=== PATIENT | male | born 1950 | race Two or more races ===

== ENCOUNTER 2020-11-05 21:32 | Inpatient (IN) | payer OTHER ==
[~2020-11-05] VITALS: Ht 172.7 cm; Wt 95.5 kg
[2020-11-05] MEDS ORDERED: ACETAMINOPHEN 325 MG TAB PO ONE (21:45)
[2020-11-05 22:31] LABS: Albumin 3.1 g/dL (3.4-5.0); Calcium 8.6 mg/dL (8.5-10.1)
[2020-11-05 22:35] LABS: Basophils # (auto) 0 10 ^3/uL (0-0.2); Basophils % (auto) 0.8 % (0.0-2.0); Eosinophils # (auto) 0 10 ^3/uL (0-0.8); Hematocrit 42.5 % (41.0-53.0); Hemoglobin 14.2 g/dL (13.5-17.5); Lymphocytes # (auto) 0.6 10 ^3/uL (0.4-5.4); Mean Corpuscular Hemoglobin 32.2 pg (28.0-32.0); Mean Corpuscular Hgb Conc. 33.5 g/dL (32.0-36.0); Mean Corpuscular Volume 96.3 fL (80.0-100.0); Monocytes # (auto) 0.2 10 ^3/uL (0-1.3); Monocytes % (auto) 7.7 % (0.0-12.0); Neutrophils # (auto) 1.7 10 ^3/uL (1.6-8.6); Neutrophils % (auto) 69.5 % (37.0-80.0); Nucleated Red Blood Cells % 0.1 %; Red Blood Cells 4.42 10^6/uL (4.5-5.90); Red Cell Distribution Width 13.6 % (11.8-14.3); White Blood Cell 2.5 10^3/uL (4.4-10.8)
[2020-11-05 22:44] LABS: BUN/Creatinine Ratio 14.8; Bilirubin, Total 0.5 mg/dL (0.2-1.0); Potassium 4.6 mmol/L (3.5-5.1); Total Protein 7.8 g/dL (6.4-8.2)
[2020-11-06] MEDS ORDERED: VANCOMYCIN 1,500 MG in D5W 5% 250 ML IV ONE (00:15)
[2020-11-06] MEDS ORDERED: VANCOMYCIN 1GM/250ML 500 ML IV ONE (01:23)
[2020-11-06] MEDS ORDERED: PIPERACILLIN-TAZO 4.5GM 100 ML IV ONE (02:15)
[2020-11-06] MEDS ORDERED: DexAMETHasone INJECTION 6 MG in D5W 5% 50 ML IV ONE (02:15)
[2020-11-06] MEDS ORDERED: ACETAMINOPHEN 500 MG TAB PO PRN (02:45)
[2020-11-06 02:54] VITALS: BP 126/79
[2020-11-06] MEDS ORDERED: NITROGLYCERIN 0.4 MG SL TAB SL PRN (03:00)
[2020-11-06] MEDS ORDERED: MORPHINE SULFATE INJECTION 2 MG/ML SYRG IV PRN (03:00)
[2020-11-06] MEDS ORDERED: ONDANSETRON HCL 4 MG/2 ML VIAL IV PRN (03:00)
[2020-11-06] MEDS ORDERED: SODIUM CHLORIDE 0.9% 1,000 ML IV SCH (03:00)
[2020-11-06] MEDS ORDERED: HYDROcodone-ACET 5/325MG TAB PO PRN (03:00)
[2020-11-06] MEDS ORDERED: DexAMETHasone SOD PHOS 4 MG/1ML SDV INJ ONE (03:13)
[2020-11-06 04:36] LABS: Magnesium 2.1 mg/dL (1.6-2.6)
[2020-11-06] MEDS ORDERED: cefTRIAXone 1GM/50ML D5W 50 ML IV SCH (09:00)
[2020-11-06] MEDS: BUDESONIDE (INHALATION) 180 MCG IH IN SCH ×2 (09:59→22:22)
[2020-11-06] MEDS: ZINC SULFATE 220mg CAP or TAB PO SCH (10:00)
[2020-11-06] MEDS: DexAMETHasone SOD PHOS 10MG/1ML VIAL INJ IV SCH (10:00)
[2020-11-06] MEDS: DOXYCYCLINE 100MG/250ML 250 ML IV SCH ×2 (10:00→22:05)
[2020-11-06] MEDS: CHOLECALCIFEROL (VITD3) 2,000 UNIT CAP/TAB PO SCH (10:00)
[2020-11-06] MEDS: MULTIPLE VITAMIN TAB PO SCH (10:00)
[2020-11-06] MEDS ORDERED: ENOXAPARIN SOD 40 MG/0.4 ML SYRINGE SC SCH (10:00)
[2020-11-06] MEDS: ASCORBIC ACID 1,000 MG TAB PO SCH (10:00)
[2020-11-06] MEDS: FAMOTIDINE (10MG/ML) 2ML VL IV SCH ×2 (10:00→22:05)
[2020-11-06] MEDS ORDERED: DEXTROSE (50%) 50ML SYRG IV PRN (13:30)
[2020-11-06] MEDS ORDERED: REMDESIVIR PER PHARMACY 0 ML IV SCH (13:30)
[2020-11-06] MEDS ORDERED: REMDESIVIR 200 MG in NS 210ml LOADING DOSE ADULT IV ONE (15:00)
[2020-11-06 15:40] LABS: Albumin 3.1 g/dL (3.4-5.0); Calcium 8.7 mg/dL (8.5-10.1); Potassium 4.4 mmol/L (3.5-5.1)
[2020-11-06 15:43] LABS: Lactic Acid w/Reflex 2.8 mmol/L (0.4-2.0)
[2020-11-06 15:49] LABS: BUN/Creatinine Ratio 15.3; Bilirubin, Total 0.4 mg/dL (0.2-1.0); CRP High Sensitivity 3.28 mg/dL (< 0.3); Total Protein 7.6 g/dL (6.4-8.2)
[2020-11-06 15:50] LABS: Thyroid Stimulating Hormone 0.87 uIU/mL (0.358-3.74)
[2020-11-06 15:51] LABS: Ferritin 956.1 ng/mL (10-322); Free T4 (Free Thyroxine) 0.88 ng/dL (0.89-1.76)
[2020-11-06] MEDS: IVERMECTIN 3 MG TAB PO SCH (15:53)
[2020-11-06] MEDS ORDERED: DEXTROSE (50%) 50ML SYRG IV ONE (16:30)
[2020-11-06] MEDS ORDERED: ACCU-CHEK COMFORT CURVE STRIP VI ONE (17:00)
[2020-11-06] MEDS ORDERED: InsuLIN REG 1unit/0.01ml Soln (100units/ml) SC ONE (17:00)
[2020-11-06] MEDS: ACCU-CHEK COMFORT CURVE STRIP VI SCH ×2 (17:00→22:05)
[2020-11-06] MEDS: InsuLIN REG 1unit/0.01ml Soln (100units/ml) SC SCH ×2 (17:35→22:07)
[2020-11-06 18:56] LABS: Alcohol, Urine < 3.0 mg/dL (0-10); Amphetamine Screen, Urine NEGATIVE (NEGATIVE); Barbiturate Scree,Urine NEGATIVE (NEGATIVE); Benzodiazephine Screen, Urine NEGATIVE (NEGATIVE); Cannabinoid Screen, Urine NEGATIVE (NEGATIVE); Cocaine Screen, Urine NEGATIVE (NEGATIVE); Opiate Scree,Urine NEGATIVE (NEGATIVE); Phencyclidine Screen, Urine NEGATIVE (NEGATIVE)
[2020-11-06] MEDS ORDERED: INSULIN LANTUS (GLARGINE) 1 /0.01ml (100units/ml) SC SCH (22:00)
[2020-11-06] MEDS: ALBUTEROL SULF HFA 90MCG INH 200DOSE IN PRN (22:22)
[2020-11-07 04:26] LABS: Basophils # (auto) 0 10 ^3/uL (0-0.2); Eosinophils # (auto) 0 10 ^3/uL (0-0.8); Hemoglobin 13.8 g/dL (13.5-17.5); Monocytes # (auto) 0.2 10 ^3/uL (0-1.3); Neutrophils # (auto) 2.6 10 ^3/uL (1.6-8.6); White Blood Cell 3.3 10^3/uL (4.4-10.8)
[2020-11-07 04:29] LABS: Basophils % (auto) 1.3 % (0.0-2.0); Hematocrit 40.6 % (41.0-53.0); Lymphocytes # (auto) 0.4 10 ^3/uL (0.4-5.4); Lymphocytes % (auto) 12.9 % (10.0-50.0); Mean Corpuscular Hemoglobin 32.7 pg (28.0-32.0); Mean Corpuscular Hgb Conc. 33.9 g/dL (32.0-36.0); Mean Corpuscular Volume 96.3 fL (80.0-100.0); Monocytes % (auto) 5.8 % (0.0-12.0); Red Blood Cells 4.22 10^6/uL (4.5-5.90); Red Cell Distribution Width 13.3 % (11.8-14.3)
[2020-11-07 04:44] LABS: INR 1.05 (0.9-1.15)
[2020-11-07 05:00] LABS: Potassium 4.4 mmol/L (3.5-5.1)
[2020-11-07 05:17] LABS: Albumin 2.7 g/dL (3.4-5.0); BUN/Creatinine Ratio 21.3; Bilirubin, Total 0.2 mg/dL (0.2-1.0); CRP High Sensitivity 2.41 mg/dL (< 0.3); Calcium 8.3 mg/dL (8.5-10.1); Magnesium 2.3 mg/dL (1.6-2.6); Total Protein 6.8 g/dL (6.4-8.2)
[2020-11-07] MEDS: ACCU-CHEK COMFORT CURVE STRIP VI SCH ×4 (06:47→21:46)
[2020-11-07] MEDS: InsuLIN REG 1unit/0.01ml Soln (100units/ml) SC SCH ×4 (06:50→21:47)
[2020-11-07] MEDS: BUDESONIDE (INHALATION) 180 MCG IH IN SCH ×2 (07:03→22:00)
[2020-11-07] MEDS: DexAMETHasone SOD PHOS 10MG/1ML VIAL INJ IV SCH (10:00)
[2020-11-07] MEDS: FAMOTIDINE (10MG/ML) 2ML VL IV SCH ×2 (10:00→22:45)
[2020-11-07] MEDS: DOXYCYCLINE 100MG/250ML 250 ML IV SCH ×2 (10:03→22:45)
[2020-11-07] MEDS: MULTIPLE VITAMIN TAB PO SCH (10:05)
[2020-11-07] MEDS: IVERMECTIN 3 MG TAB PO SCH (10:06)
[2020-11-07] MEDS: ZINC SULFATE 220mg CAP or TAB PO SCH (10:06)
[2020-11-07] MEDS: ASCORBIC ACID 1,000 MG TAB PO SCH (10:06)
[2020-11-07] MEDS: CHOLECALCIFEROL (VITD3) 2,000 UNIT CAP/TAB PO SCH (10:07)
[2020-11-07] MEDS: REMDESIVIR 100mg 100 MG in SODIUM CHL 0.9% 230 ML IV SCH (14:22)
[2020-11-07 14:57] LABS: Albumin 2.8 g/dL (3.4-5.0); Calcium 8.5 mg/dL (8.5-10.1); Potassium 4.5 mmol/L (3.5-5.1)
[2020-11-07 14:58] LABS: BUN/Creatinine Ratio 22.2
[2020-11-07 15:01] LABS: Bilirubin, Total 0.2 mg/dL (0.2-1.0); Total Protein 6.9 g/dL (6.4-8.2)
[2020-11-07 21:54] VITALS: BP 133/68
[2020-11-07] MEDS ORDERED: INSULIN LANTUS (GLARGINE) 1 /0.01ml (100units/ml) SC SCH (22:00)
[2020-11-07] MEDS ORDERED: INSULIN LANTUS (GLARGINE) 1 /0.01ml (100units/ml) SC ONE (22:30)
[2020-11-07 23:04] VITALS: BP 133/68
[2020-11-08 05:30] VITALS: BP 124/79
[2020-11-08] MEDS: ACCU-CHEK COMFORT CURVE STRIP VI SCH ×4 (06:11→21:31)
[2020-11-08] MEDS: InsuLIN REG 1unit/0.01ml Soln (100units/ml) SC SCH ×3 (06:12→18:29)
[2020-11-08] MEDS: ALBUTEROL SULF HFA 90MCG INH 200DOSE IN PRN ×3 (09:58→21:52)
[2020-11-08] MEDS: BUDESONIDE (INHALATION) 180 MCG IH IN SCH ×2 (09:59→21:52)
[2020-11-08] MEDS: ZINC SULFATE 220mg CAP or TAB PO SCH (10:34)
[2020-11-08] MEDS: ASCORBIC ACID 1,000 MG TAB PO SCH (10:34)
[2020-11-08] MEDS: DexAMETHasone SOD PHOS 10MG/1ML VIAL INJ IV SCH (10:35)
[2020-11-08] MEDS: CHOLECALCIFEROL (VITD3) 2,000 UNIT CAP/TAB PO SCH (10:35)
[2020-11-08] MEDS: DOXYCYCLINE 100MG/250ML 250 ML IV SCH ×2 (10:35→21:30)
[2020-11-08] MEDS: MULTIPLE VITAMIN TAB PO SCH (10:35)
[2020-11-08] MEDS: FAMOTIDINE (10MG/ML) 2ML VL IV SCH ×2 (10:35→21:30)
[2020-11-08] MEDS: IVERMECTIN 3 MG TAB PO SCH (10:36)
[2020-11-08 11:29] LABS: Hepatitis B Surface Antigen Negative (Negative)
[2020-11-08 11:55] LABS: Hepatitis B Surface Antibody Negative
[2020-11-08 12:12] LABS: Hepatitis C Antibody Negative (Negative)
[2020-11-08 12:24] LABS: Hepatitis B Core Total AB Negative
[2020-11-08 12:27] LABS: Hepatitis A Total Antibody Positive
[2020-11-08 12:30] VITALS: BP 99/67
[2020-11-08] MEDS ORDERED: DEXTROSE (50%) 50ML SYRG IV PRN (13:45)
[2020-11-08] MEDS ORDERED: FUROSEMIDE 20 MG/2 ML VIAL IV ONE (14:00)
[2020-11-08] MEDS: REMDESIVIR 100mg 100 MG in SODIUM CHL 0.9% 230 ML IV SCH (15:20)
[2020-11-08 16:40] VITALS: BP 113/67
[2020-11-08] MEDS ORDERED: ASCO500T11 PO (16:58)
[2020-11-08] MEDS ORDERED: INSULIN LANTUS (GLARGINE) 1 /0.01ml (100units/ml) SC SCH (18:08)
[2020-11-08 21:56] VITALS: BP 110/63
[2020-11-08] MEDS ORDERED: InsuLIN REG 1unit/0.01ml Soln (100units/ml) SC SCH (22:00)
[2020-11-09 03:24] VITALS: BP 110/63
[2020-11-09 04:39] VITALS: BP 102/65
[2020-11-09] MEDS: ACCU-CHEK COMFORT CURVE STRIP VI SCH ×5 (06:08→23:44)
[2020-11-09] MEDS: InsuLIN REG 1unit/0.01ml Soln (100units/ml) SC SCH ×5 (06:11→23:48)
[2020-11-09 06:44] LABS: Albumin 2.6 g/dL (3.4-5.0); BUN/Creatinine Ratio 23.9; CRP High Sensitivity 0.65 mg/dL (< 0.3); Calcium 8.2 mg/dL (8.5-10.1); INR 1.11 (0.9-1.15); Potassium 3.9 mmol/L (3.5-5.1)
[2020-11-09 06:47] LABS: Bilirubin, Total 0.3 mg/dL (0.2-1.0); Total Protein 6.5 g/dL (6.4-8.2)
[2020-11-09 06:53] LABS: Basophils # (auto) 0 10 ^3/uL (0-0.2); Basophils % (auto) 0.2 % (0.0-2.0); Eosinophils # (auto) 0 10 ^3/uL (0-0.8); Hematocrit 43.1 % (41.0-53.0); Hemoglobin 14.6 g/dL (13.5-17.5); Lymphocytes # (auto) 0.5 10 ^3/uL (0.4-5.4); Lymphocytes % (auto) 6.5 % (10.0-50.0); Mean Corpuscular Hemoglobin 32.6 pg (28.0-32.0); Mean Corpuscular Hgb Conc. 33.8 g/dL (32.0-36.0); Mean Corpuscular Volume 96.3 fL (80.0-100.0); Monocytes # (auto) 0.6 10 ^3/uL (0-1.3); Monocytes % (auto) 6.9 % (0.0-12.0); Neutrophils # (auto) 7.2 10 ^3/uL (1.6-8.6); Neutrophils % (auto) 86.4 % (37.0-80.0); Nucleated Red Blood Cells % 0.1 %; Red Blood Cells 4.47 10^6/uL (4.5-5.90); Red Cell Distribution Width 13.9 % (11.8-14.3); White Blood Cell 8.3 10^3/uL (4.4-10.8)
[2020-11-09] MEDS: ALBUTEROL SULF HFA 90MCG INH 200DOSE IN PRN (08:21)
[2020-11-09] MEDS: BUDESONIDE (INHALATION) 180 MCG IH IN SCH ×2 (08:22→22:00)
[2020-11-09 09:00] VITALS: BP 100/61
[2020-11-09] MEDS: FAMOTIDINE (10MG/ML) 2ML VL IV SCH ×2 (10:04→21:46)
[2020-11-09] MEDS: DexAMETHasone SOD PHOS 10MG/1ML VIAL INJ IV SCH (10:04)
[2020-11-09] MEDS: DOXYCYCLINE 100MG/250ML 250 ML IV SCH ×2 (10:04→21:46)
[2020-11-09] MEDS: CHOLECALCIFEROL (VITD3) 2,000 UNIT CAP/TAB PO SCH (10:04)
[2020-11-09] MEDS: MULTIPLE VITAMIN TAB PO SCH (10:04)
[2020-11-09] MEDS: ASCORBIC ACID 1,000 MG TAB PO SCH (10:04)
[2020-11-09] MEDS: FUROSEMIDE 20 MG/2 ML VIAL IV SCH (10:05)
[2020-11-09] MEDS: IVERMECTIN 3 MG TAB PO SCH (12:06)
[2020-11-09] MEDS: ZINC SULFATE 220mg CAP or TAB PO SCH (12:06)
[2020-11-09 13:00] VITALS: BP 111/72
[2020-11-09] MEDS ORDERED: DEXTROSE (50%) 50ML SYRG IV PRN (13:30)
[2020-11-09] MEDS: REMDESIVIR 100mg 100 MG in SODIUM CHL 0.9% 230 ML IV SCH (15:08)
[2020-11-09 17:00] VITALS: BP 110/69
[2020-11-09] MEDS: ENOXAPARIN SOD 40 MG/0.4 ML SYRINGE SC SCH (21:46)
[2020-11-09] MEDS: INSULIN LANTUS (GLARGINE) 1 /0.01ml (100units/ml) SC SCH (21:47)
[2020-11-09 22:00] VITALS: BP 105/78
[2020-11-10] MEDS: ALBUTEROL SULF HFA 90MCG INH 200DOSE IN PRN ×3 (03:02→21:38)
[2020-11-10] MEDS: ACCU-CHEK COMFORT CURVE STRIP VI SCH ×5 (04:12→20:00)
[2020-11-10] MEDS: InsuLIN REG 1unit/0.01ml Soln (100units/ml) SC SCH ×5 (04:14→21:38)
[2020-11-10 05:00] VITALS: BP 124/63
[2020-11-10] MEDS ORDERED: IVERMECTIN 3 MG TAB PO SCH (07:00)
[2020-11-10 08:26] LABS: Basophils # (auto) 0 10 ^3/uL (0-0.2); Basophils % (auto) 0.1 % (0.0-2.0); Eosinophils # (auto) 0 10 ^3/uL (0-0.8); Hematocrit 49.3 % (41.0-53.0); Hemoglobin 16.8 g/dL (13.5-17.5); Lymphocytes # (auto) 0.7 10 ^3/uL (0.4-5.4); Mean Corpuscular Hemoglobin 32.4 pg (28.0-32.0); Mean Corpuscular Hgb Conc. 34.1 g/dL (32.0-36.0); Mean Corpuscular Volume 94.8 fL (80.0-100.0); Monocytes # (auto) 0.5 10 ^3/uL (0-1.3); Monocytes % (auto) 5.4 % (0.0-12.0); Neutrophils # (auto) 8.6 10 ^3/uL (1.6-8.6); Neutrophils % (auto) 87.5 % (37.0-80.0); Nucleated Red Blood Cells % 0.1 %; Red Cell Distribution Width 13.6 % (11.8-14.3); White Blood Cell 9.9 10^3/uL (4.4-10.8)
[2020-11-10] MEDS: BUDESONIDE (INHALATION) 180 MCG IH IN SCH ×2 (08:28→21:38)
[2020-11-10 08:56] LABS: CRP High Sensitivity 0.79 mg/dL (< 0.3); Potassium 3.8 mmol/L (3.5-5.1)
[2020-11-10 08:58] LABS: BUN/Creatinine Ratio 26.1; Bilirubin, Total 0.5 mg/dL (0.2-1.0); Total Protein 7.3 g/dL (6.4-8.2)
[2020-11-10 09:00] VITALS: BP 111/74
[2020-11-10] MEDS: DexAMETHasone SOD PHOS 10MG/1ML VIAL INJ IV SCH (09:28)
[2020-11-10] MEDS: FUROSEMIDE 20 MG/2 ML VIAL IV SCH (09:28)
[2020-11-10] MEDS: ASCORBIC ACID 1,000 MG TAB PO SCH (09:29)
[2020-11-10] MEDS: MULTIPLE VITAMIN TAB PO SCH (09:29)
[2020-11-10] MEDS: DOXYCYCLINE 100MG/250ML 250 ML IV SCH ×2 (09:29→21:39)
[2020-11-10] MEDS: ZINC SULFATE 220mg CAP or TAB PO SCH (09:29)
[2020-11-10] MEDS: CHOLECALCIFEROL (VITD3) 2,000 UNIT CAP/TAB PO SCH (09:29)
[2020-11-10] MEDS: FAMOTIDINE (10MG/ML) 2ML VL IV SCH ×2 (09:29→21:39)
[2020-11-10] MEDS: ENOXAPARIN SOD 40 MG/0.4 ML SYRINGE SC SCH (09:30)
[2020-11-10 13:00] VITALS: BP 129/69
[2020-11-10] MEDS: REMDESIVIR 100mg 100 MG in SODIUM CHL 0.9% 230 ML IV SCH (15:11)
[2020-11-10] MEDS: METOPROLOL SUCCINATE XL 50 MG TAB PO SCH (15:15)
[2020-11-10 17:00] VITALS: BP 125/51
[2020-11-10] MEDS: RIVAROXABAN 20 MG TAB PO SCH (18:01)
[2020-11-10] MEDS: INSULIN LANTUS (GLARGINE) 1 /0.01ml (100units/ml) SC SCH (21:38)
[2020-11-10 22:00] VITALS: BP 102/77
[2020-11-11] MEDS: ACCU-CHEK COMFORT CURVE STRIP VI SCH ×6 (00:17→21:23)
[2020-11-11] MEDS: InsuLIN REG 1unit/0.01ml Soln (100units/ml) SC SCH ×6 (00:19→21:30)
[2020-11-11 05:00] VITALS: BP 125/61
[2020-11-11] MEDS: ALBUTEROL SULF HFA 90MCG INH 200DOSE IN PRN ×2 (06:51→22:13)
[2020-11-11] MEDS: BUDESONIDE (INHALATION) 180 MCG IH IN SCH ×2 (06:51→22:13)
[2020-11-11 07:12] LABS: Alanine Aminotransferase 47 U/L (16-61); Alkaline Phosphatase 64 U/L (45-117); Aspartate Aminotransferase 70 U/L (15-37)
[2020-11-11] MEDS: DexAMETHasone SOD PHOS 10MG/1ML VIAL INJ IV SCH (08:31)
[2020-11-11] MEDS: FAMOTIDINE (10MG/ML) 2ML VL IV SCH ×2 (08:32→21:35)
[2020-11-11] MEDS: MULTIPLE VITAMIN TAB PO SCH (08:32)
[2020-11-11] MEDS: FUROSEMIDE 20 MG/2 ML VIAL IV SCH (08:32)
[2020-11-11] MEDS: ZINC SULFATE 220mg CAP or TAB PO SCH (08:32)
[2020-11-11] MEDS: CHOLECALCIFEROL (VITD3) 2,000 UNIT CAP/TAB PO SCH (08:33)
[2020-11-11] MEDS: METOPROLOL SUCCINATE XL 50 MG TAB PO SCH (08:33)
[2020-11-11] MEDS: ASCORBIC ACID 1,000 MG TAB PO SCH (08:33)
[2020-11-11 09:00] VITALS: BP 112/76
[2020-11-11 13:00] VITALS: BP 118/60
[2020-11-11] MEDS: RIVAROXABAN 20 MG TAB PO SCH (16:48)
[2020-11-11 17:00] VITALS: BP 120/57
[2020-11-11] MEDS: INSULIN LANTUS (GLARGINE) 1 /0.01ml (100units/ml) SC SCH (21:34)
[2020-11-11 22:00] VITALS: BP 120/85
== END 2020-11-11 23:46 | disposition left against medical advice (07) | DRG 871 ==
LOC: ER 21:35 → EDBD 21:35 → TELE 11-06 03:06 → TELE-EAST 11-07 20:48
PROVIDERS: ADMIT Nurse Practitioner Family; ATTEND Internal Medicine
PROC: XW033E5 Introduction of Remdesivir Anti-infective into Peripheral Vein, Percutaneous Approach, New Technology Group 5 (ICD-10-PCS; principal; 2020-11-06)
DX: A41.89 Other specified sepsis (principal); U07.1 COVID-19; J12.82 Pneumonia due to coronavirus disease 2019; J96.01 Acute respiratory failure with hypoxia; N17.0 Acute kidney failure with tubular necrosis; D61.818 Other pancytopenia; E87.1 Hypo-osmolality and hyponatremia; J98.11 Atelectasis; E88.09 Other disorders of plasma-protein metabolism, not elsewhere classified; Z96.651 Presence of right artificial knee joint; E11.22 Type 2 diabetes mellitus with diabetic chronic kidney disease; E11.65 Type 2 diabetes mellitus with hyperglycemia; R74.8 Abnormal levels of other serum enzymes; E66.9 Obesity, unspecified; I12.9 Hypertensive chronic kidney disease with stage 1 through stage 4 chronic kidney disease, or unspecified chronic kidney disease; I48.91 Unspecified atrial fibrillation; N18.9 Chronic kidney disease, unspecified; Z91.19 Patient's noncompliance with other medical treatment and regimen; Z79.899 Other long term (current) drug therapy; Z68.32 Body mass index [BMI] 32.0-32.9, adult
CPT/HCPCS: 36415; 36600; 71045; 80053; 80061; 80307; 82306; 82607; 82728; 82805; 82962; 83036; 83605; 83615; 83735; 84075; 84436; 84439; 84443; 84450; 84460; 84484; 85025; 85379; 85610; 86038; 86141; 86703; 86704; 86706; 86708; 86803; 87040; 87340; 87426; 93005; 93306; 93970; 94640; 96374; G0378; J0696; J1100; J1815; J2543; J3490; J7060